=== PATIENT | female | born 1950 | race Caucasian/White ===

== ENCOUNTER 2021-09-15 13:49 | Outpatient (CLI) | payer MEDICARE, OTHER, SELFPAY ==
--- NOTE | 2021-09-15 14:00 | RAD_ITS ---
STUDY: X-RAY - PELVIS REASON FOR EXAM: Female, 70 years old. PSORIATIC ARTHROPATHY TECHNIQUE: One view of the pelvis was obtained. COMPARISON: None. FINDINGS: Moderate amount of fecal material is seen in the colon. There are multiple calcified phleboliths. Normal bilateral iliac wings, sacroiliac joints and visualized sacrum. Normal visualized bilateral superior and inferior pubic rami. Normal pubic symphysis. Normal ischial tuberosities. Normal visualized right femoral head. Normal right acetabulum. There is mild articular joint space narrowing of the right hip. Normal visualized left femoral head. Normal left acetabulum. There is mild articular joint space narrowing of the left hip. RAD/Pelvis 1 or 2 Views IMPRESSION: Degenerative changes of both hip joints. Electronically Signed: Conrad Mccann MD at 15:21 EST , Service support ,
[2021-09-15 17:48] LABS: Absolute Lymphocyte Count 2.16 X10^3/uL (0.83-4.51); Absolute Neutrophil Count 3.7 X10^3/uL (2.0-7.7); Basophil# 0.07 X10^3/uL; Basophil% 1.1 % (0-1); Eosinophils% 1.6 % (0-5); Hematocrit 37.5 % (37-47); Hemoglobin 12.3 g/dL (12.0-15.0); Lymphocyte # 2.16 X10^3/ul (0.83-4.51); Lymphocyte % 33.5 % (19-41); Mean Corp Hgb Conc 32.8 g/dL (32-36); Mean Corpuscular Hgb 31.6 pg (27.0-32.0); Mean Corpuscular Volume 96.4 fL (81-99); Mean Platelet Vol. 10.6 fl (6.2-12.0); Monocyte# 0.45 X10^3/uL; NRBC Flagged by Analyzer 0 % (0-5); Neutrophil # 3.65 X10^3/uL (2.7-7.7); Neutrophil % 56.6 % (47-70); Platelet Count 320 K/mm3 (150-450); RBC Distribution Width CV 13.5 % (11.6-14.6); RBC Distribution Width SD 48.2 fl (35.1-43.9); Red Blood Count 3.89 M/mm3 (4.2-5.4); White Blood Count 6.4 K/mm3 (4.4-11.0)
[2021-09-15 18:10] LABS: Erythrocyte Sedimentation Rate 4 mm/hr (0-30)
[2021-09-15 18:21] LABS: ALB/GLOB Ratio 1.2 RATIO (0.9-2.4); AST(SGOT) 20 U/L (15-37); Alanine Aminotransfer ALT/SGPT 31 U/L (13-56); Albumin, Serum 4.1 g/dL (3.2-5.0); Alkaline Phosphatase 59 U/L (45-117); Anion Gap 8 (5-15); BUN 18 mg/dL (7-18); BUN/Creat Ratio 22.8 RATIO (10-20); CRP < 2.90 mg/L (0.0-3.0); Calcium,Total 9.1 mg/dL (8.5-10.1); Chloride 96 mmol/L (98-107); Creatinine, Serum 0.79 mg/dL (0.55-1.02); EST Glomerular Filtration Rate 77 mL/min (>60); Est Glom Filt Rate - Afr Amer 93 mL/min (>60); Globulin 3.5 g/dL (2.2-4.2); Glucose 93 mg/dL (74-106); Potassium 3.8 mmol/L (3.5-5.1); Protein, Total 7.6 g/dL (6.4-8.2); Rheumatoid Factor < 10.0 IU/mL (<15); Sodium Level 133 mmol/L (136-145)
[2021-09-15 22:15] LABS: Hepatitis B Surface Antibody Non-Reactive; Hepatitis B Surface Antigen Non-Reactive (Nonreactive); Hepatitis C Antibody Non-Reactive (Nonreactive)
[2021-09-17 12:08] LABS: SJOGREN'S Anti-SS-A test < 0.2 AI (0.0-0.9); SJOGREN'S Anti-SS-B test < 0.2 AI (0.0-0.9)
[2021-09-17 13:42] LABS: ANTINUCLEAR ANTIBODIES DIRECT Negative (Negative)
[2021-09-18 08:48] LABS: CCP IgG Antibodies 4 units (0-19)
== END 2021-09-15 23:59 | disposition short-term general hospital (02) ==
LOC: MTLAB 13:58
PROVIDERS: PCP Student in an Organized Health Care Education/Training Program; Referring Provider Internal Medicine Rheumatology; Visit Provider Internal Medicine Rheumatology
DX: L40.59 Other psoriatic arthropathy (principal); L40.8 Other psoriasis; M47.897 Other spondylosis, lumbosacral region; M85.80 Other specified disorders of bone density and structure, unspecified site; E78.5 Hyperlipidemia, unspecified
CPT/HCPCS: 36415; 72170; 80053; 85025; 85652; 86038; 86140; 86200; 86235; 86431; 86706; 86803; 87340

== ENCOUNTER 2022-01-01 05:54 | Inpatient (IN) | payer MEDICARE, OTHER, SELFPAY ==
[2022-01-01] VITALS (13 sets, daily range): BP systolic 121–163; BP diastolic 56–86; PULSE 55–83; RESP 16–18; TEMP 35.8–36.6; O2SAT 95–100; BMI 20.1
[2022-01-01] MEDS: Lactated Ringers 1,000 ML 15 ML IV (06:47)
--- NOTE | 2022-01-01 06:53 | PCM.OPRPT ---
Problems Associated Problem List Diagnoses (1) Lumbar stenosis: Report of Operation Date of Procedure: 01/01/22 Pre-Operative Diagnosis: 1. Lumbar stenosis, L5-S1 with spondylosis 2. Lumbar degenerative disc disease L5-S1 Post-Operative Diagnosis: 1. Lumbar stenosis, L5-S1 with spondylosis 2. Lumbar degenerative disc disease L5-S1 Surgery/Procedure Performed:: 1. L5-S1 posterior lumbar interbody fusion 2. Insertion of intervertebral biomechanical device x1 3. Structural allograft for spinal fusion 4. L5 bilateral laminectomies, foraminotomies, facetectomies, decompression of bilateral L5 nerve roots 5. S1 bilateral laminectomies, foraminotomies, facetectomies, decompression of bilateral S1 nerve roots 6. L5-S1 posterior lateral fusion 7. Pedicle screw fixation 8. Local autograft for spinal fusion 9. Neuro monitoring bilateral upper and bilateral lower extremities Description of Surgical Findings:: The patient is a 71-year-old female with intractable back and leg pain. Image studies confirm the above diagnoses. She has failed conservative treatment to include medication, physical therapy and injections. The patient opted for operative intervention understanding the risk to include, but not limited to, infection, bleeding, damage to nerves arteries and veins, possibility of spinal fluid leak, nonunion, hardware failure, continued pain, need for further surgery, deep vein thrombosis, pulmonary embolism, heart attack, risk of stroke or . The patient was identified in the preoperative holding area. There she received preoperative IV antibiotics, clindamycin, and was then transferred to the operative suite. Once in the operative suite, after general endotracheal anesthesia was established, the patient was positioned prone on the Kwame operating table. All bony prominences were padded accordingly. The lumbar spine was prepped and draped in a standard surgical fashion. Bear hugger's were not turned on until the drapes were placed and sealed with Ioban. A midline incision was made and taken down to the level of the lumbodorsal fascia. The fascia was divided and subperiosteal dissection was taken down to the level of the transverse processes of L5 bilaterally and sacral ala bilaterally. Deep retractors were placed. A bone scalpel was used to make cuts in the lamina of L5 and then a series of Kerrisons and rongeurs were used removing the spinous process and lamina of L5. Then facetectomies of greater than 50% were performed as well as foraminotomies, decompressing the bilateral L5 and S1 nerve roots. Given the severity of the stenosis, I needed to perform wide bilateral laminectomies and near complete facetectomies in order to decompress the neural elements thus creating instability and necessitating the fusion. I then proceeded with pedicle screw fixation. Starting points were found at the junction of the superior articular process and transverse processes and sacral ala. A power bur was used for the starting points. Pedicle probes were placed bilaterally and then 6.5 x 45 mm screws were placed bilaterally at L5 and 6.5 x 40 mm screws were placed bilaterally at S1. The screws were tested with intraoperative neurophysiologic monitoring and they tested within normal limits. Connecting rods were then applied and secured with set screws. I then proceeded with the posterior lateral fusion. This was accomplished by decorticating the transverse processes bilaterally at L5 and the sacral ala bilaterally at S1. This decorticated bone was then bridged with local autograft from the decompression as well as morselized cancellous allograft therefore completing the posterior lateral fusion at L5-S1. The incision was thoroughly irrigated. Tisseel was placed over the dura as a hemostatic agent. A deep drain was placed. The fascia was closed with #1 Vicryl, subcutaneous with 2-0 Vicryl and skin with 2-0 nylon. A sterile dressing was applied with 4 x 4's ABD and tape. Sponge instrument needle counts were correct at the end of the case. Neurophysiologic monitoring was maintained at baseline throughout the duration of the case. The patient was extubated and taken to the PACU without incident. Sintia Healy PA-C was present during the entire duration of the case and necessary for critical parts of the case including retraction and closure. Surgeon: Luis Pinto seconds inspector: Sintia Healy Type of Anesthesia: General Drains: Hemovac Estimated Blood Loss (mL): 100 cc Fluids Replaced: 2000 cc Grafts/Implants Used: Unified spine, Talos, Vitae OS, DBM Complications None Admit VTE Documentation VTE Present on Admission: No
--- NOTE | 2022-01-01 06:53 | PCM.PN.ORT ---
Subjective Subjective The patient was seen postoperatively in the PACU. She is lying in bed resting comfortably. She is having some postop soreness in the back but denies any other complaints including numbness tingling or weakness. Objective Data Objective Data Vital Signs: Vital Signs Temp Pulse Resp BP Pulse Ox 97.2 F L 77 18 163/86 H 100 01/01/22 06:36 01/01/22 06:36 01/01/22 06:36 01/01/22 06:36 01/01/22 06:36 Oxygen Delivery Method Room Air Weight: 117 lb 6.4 oz Body Mass Index (BMI) 20.1 Lab / Micro Data Micro: Microbiology 12/29/21 09:18 Interface Orders SARS-CoV-2 Antigen (Rapid) - Final Physical Exam Const alert, oriented x3 and no apparent distress General Appearance: cooperative and comfortable HEENT normocephalic and head/scalp atraumatic Eyes EOMs intact bilaterally and conjunctivae normal Neck full ROM General: normal visual inspection Chest inspection of chest normal and palpation of chest normal Resp normal respiratory effort and normal air movement Cardio regular rate, regular rhythm and peripheral pulses 2+ throughout GI soft to palpation, non-tender and non-distended Back/Spine Back/Spine Narrative: Dressing clean dry and intact. Drain in place and functioning, small amount of serosanguineous fluid in the drain Cervical Spine: cervical ROM normal Thoracic Spine / Upper Back: normal to inspection Lumbar Spine / Lower Back: normal to inspection Extremity normal to inspection, full ROM, normal capillary refill, no clubbing, cyanosis or edema and no calf tenderness Skin no rashes or lesions noted General Skin Exam: no breakdown Neuro oriented x3, CN's II-XII intact bilaterally, moves all extremities, no focal motor deficits, no sensory deficits noted and deep tendon reflexes 2+ bilaterally Motor Exam: strength 5/5 throughout and muscle tone normal throughout Assessment & Plan Assessment/Plan (1) Lumbar stenosis: PLAN: Okay to admit to floor See orders Pain control and mobilization as tolerated, back brace on at all times while out of bed Continue antibiotics while drain in place Discharge planning, likely home tomorrow
--- NOTE | 2022-01-01 06:53 | PCM.DC.SUM ---
Providers Date of Admission: 01/01/22 Primary Care Physician: Dr. Aden Harrington DO Reason For Visit: lumbar 5-sacral 1 posterior lumbar interbody fusio Diagnosis Discharge Diagnosis (1) Lumbar stenosis: Status: Acute Code(s): M48.061 - Spinal stenosis, lumbar region without neurogenic claudication Medications at Discharge Home Medications ascorbic acid (vitamin C) [Vitamin C] 500 mg PO DAILY 12/22/21 calcium carbonate-vitamin D3 2 tab PO DAILY 12/22/21 folic acid 2 mg PO DAILY 12/22/21 methotrexate sodium 15 mg PO QWEEK 12/22/21 omega-3 fatty acids 1,000 mg PO DAILY 12/22/21 sknvhcj-eijc-fslws-oreg-capryl 1 cap PO DAILY 12/22/21 vitamin B complex 1 cap PO DAILY 12/22/21 hydrocodone-acetaminophen 1 tab PO Q6H 7 Days #28 tab 01/01/22 Hospital Course Operations - (L5-S1 posterior lumbar interbody fusion, decompression, posterior spinal fusion with instrumentation, use of allograft) Summary of Care Provided Minutes Spent on Discharge: 15 Hospital Course: The patient is a 71-year-old female who underwent L5-S1 posterior lumbar interbody fusion, decompression, posterior spinal fusion with instrumentation, use of allograft on 01/01/2022. She was subsequently admitted. The hospitalist was consulted for medical management. She progressed well. Her pain was well controlled and she was mobilizing well. Her drain was pulled on postoperative day 1. No significant medical issues were reported. She was subsequently discharged home on 01/02/22 to follow-up with Dr. Pinto in 3 weeks Physical Exam Const alert, oriented x3 and no apparent distress General Appearance: cooperative, comfortable and well kempt HEENT normocephalic and head/scalp atraumatic Eyes EOMs intact bilaterally and conjunctivae normal Neck full ROM General: normal visual inspection Chest inspection of chest normal and palpation of chest normal Resp normal respiratory effort and normal air movement Effort and Inspection: able to speak in complete sentences Cardio regular rate and peripheral pulses 2+ throughout GI soft to palpation, non-tender and non-distended Back/Spine Back/Spine Narrative: Dressing clean dry and intact. Incision well approximated with interrupted sutures in place. No tenderness erythema drainage or fluctuance Cervical Spine: cervical ROM normal Thoracic Spine / Upper Back: normal to inspection Lumbar Spine / Lower Back: normal to inspection Extremity normal to inspection, full ROM, normal capillary refill, no clubbing, cyanosis or edema and no calf tenderness Skin no rashes or lesions noted General Skin Exam: no breakdown Neuro oriented x3, CN's II-XII intact bilaterally, moves all extremities, no focal motor deficits, no sensory deficits noted and deep tendon reflexes 2+ bilaterally Motor Exam: strength 5/5 throughout and muscle tone normal throughout Weight / BMI Weight Weight: 117 lb 6.4 oz Body Mass Index (BMI) 20.1 ABG / Lab / Microbiology Data Microbiology: Microbiology 12/29/21 09:18 Interface Orders SARS-CoV-2 Antigen (Rapid) - Final D/C Instructions Discharge Diet: No restrictions Lifting Restricted to (Lbs): 5 Additional Activity Instructions: No bending twisting or lifting greater than 5 pounds, back brace on at all times when out of bed Call your doctor if your incision/area has: Continuous Slow Oozing, Sudden Increased Bleeding, Increased Pain/ Swelling, Increased Redness, Foul Smelling Discharge and Swelling at the incision site Call your doctor if you observe: Fever of 101 or Higher, Coldness, Increased Pain, Numbness or Tingling, Change in Color, Inability to urinate, Inability to have a bowel movement, Using more than 1 pad per hour, Shortness of breath, Dizziness, Fainting spells, Swelling in the ankles, Chest pain, Prolonged hiccupping, Increased palpitations (irregular heartbeat), Calf discomfort and Uncontrolled pain Change Dressing in: Daily Cleanse incision/area with: Do not get Incision Wet and Keep Dressing Clean & Dry Additional Dressing/Incision Instructions: Daily dry dressing changes with gauze and tape and iodine to incision. [place] dressing to shower Please Follow Up With: Luis Pinto DO When: 3 weeks Meaningful Use Info Meaningful Use Diagnoses (Choose all that apply): None applicable Discharge Plan Admission Admit Date/Time: 01/01/22 05:54 Attending Provider: Luis Pinto Primary Care Provider: Aden Harrington Consulting Providers: Arlene Moyer Instructions Additional Instructions / Restrictions: 1. During your procedure, you received sedation through your IV. Please follow these instructions for the next 24 hours: Do not drive a motor vehicle, do not drink any alcoholic beverages, and do not sign any legal documents or make personal or business decisions. A responsible adult should stay with you at least 6 hours after the procedure. 2. Keep your surgical site/incision clean and the dressing dry and intact. You may use an ice pack at the surgical site to reduce any swelling or discomfort. 3. Monitor the incision site for any signs or symptoms of infection. Watch for redness, excessive swelling or drainage, or continued pain at the incision site after 3 days. Contact your physician immediately for a fever, chills or a temperature of 101.5? F or greater. 4. Take your medication exactly as prescribed by your physician. Do not attempt to wean yourself off any of your medications even though your pain is improving. This process needs to be carefully monitored by your doctor. Take any antibiotics prescribed exactly as directed and until they are gone. 5. Avoid stretching, bending, pulling, twisting or any sudden movements. Do not bend or twist at the waist. Back brace at all times when out of bed 6. No lifting greater than 5 pounds. 7. Do not operate a motor vehicle, equipment or a power tool while taking pain medication 8. Do not have any manipulation done by a chiropractor or any other physician without first consulting with the surgeon 9 Please contact our office if you are even scheduled for a CT scan or an MRI. 10. Please call us if you have any questions, problems or concerns. Discharge Orders/Prescriptions Prescriptions: New hydrocodone-acetaminophen 5-325 mg tablet 1 tab PO Q6H 7 Days Qty: 28 RF: 0 Continued methotrexate sodium 2.5 mg Tablet 15 mg PO QWEEK RF: 0 folic acid 1 mg Tablet 2 mg PO DAILY RF: 0 ascorbic acid (vitamin C) [Vitamin C] 500 mg Tablet Extended Release 500 mg PO DAILY RF: 0 vitamin B complex Capsule 1 cap PO DAILY RF: 0 omega-3 fatty acids Capsule 1,000 mg PO DAILY RF: 0 dtunzdl-ccjb-zlogy-oreg-capryl 100 mg-150 mg- 50 mg-150 mg Capsule 1 cap PO DAILY RF: 0 calcium carbonate-vitamin D3 600 mg-5 mcg (200 unit) Tablet 2 tab PO DAILY RF: 0 Referrals / Follow Up: Aden Harrington DO [Primary Care Provider] - Luis Pinto DO [STAFF PHYSICIAN] - Disposition Discharge Orders: Discharge Patient (Routine); Ordered 01/02/22 Ordered By: Dr. Luis Pinto
--- NOTE | 2022-01-01 07:30 | RAD_ITS ---
STUDY: X-RAY - LUMBAR SPINE REASON FOR EXAM: Female, 71 years old. L5-S1 POSTERIOR FUSION WITH INSTRUMENTS. 140 SEC. FL. TECHNIQUE: 3 view(s) of the lumbar spine were obtained. COMPARISON: None FINDINGS: Localization instrument is seen at L5-S1 level. Interpedicular screw and naman fixation at the L5-S1 level. RAD/Lumbar Spine 2 or 3 Views IMPRESSION: Intraoperative images are provided for screw and naman fixation at the L5-S1 level. Electronically Signed: Conrad Mccann MD at 13:56 EDT ,
[2022-01-01 07:39] LABS: Prothrombin Time (Protime)PT. 12.9 SECONDS (11.7-14.9)
[2022-01-01] MEDS: Clindamycin 600 MG/50 ML BAG 100 MG IV (08:05)
[2022-01-01] MEDS: Heparin 10,000 UNITS/10 ML Vial 10000 UNITS (08:28)
[2022-01-01] MEDS: THROMBIN (RECOMBINANT) 20,000 UNIT VIAL 20000 UNIT TOPICAL (08:45)
--- NOTE | 2022-01-01 14:19 | PCM.PN.HOSP ---
Documented by User: Kofi NEGRETE 01/01/22 14:27 Subjective Subjective Patient is a 71-year-old female comfortably lying in bed, alert and orient x3. Patient reports that her pain is well controlled after her back surgery, but does report some nausea. Does not appear in acute distress. Objective Data Objective Data Vital Signs: Vital Signs Temp Pulse Resp BP Pulse Ox 97.2 F L 83 16 159/79 H 98 01/01/22 13:47 01/01/22 13:47 01/01/22 13:47 01/01/22 13:47 01/01/22 13:47 Oxygen Flow Rate (L/min) 4 Oxygen Delivery Method Room Air Weight: 117 lb 6.4 oz Body Mass Index (BMI) 20.1 Intake & Output: Intake and Output for Last 24 Hours 12/30/21 12/31/21 01/01/22 23:59 23:59 23:59 Intake Total 50 / 50 Output Total 450 / 450 Balance -400 / -400 Lab / Micro Data Labs: Laboratory Results - last 24 hr 01/01/22 06:40: PT Cancelled, INR Cancelled, APTT Cancelled 01/01/22 07:13: PT 12.9, INR 1.0, APTT 31.0 Micro: Microbiology 12/29/21 09:18 Interface Orders SARS-CoV-2 Antigen (Rapid) - Final Radiography Diagnostic Testing: Radiology Impression Lumbar Spine X-Ray 01/01/22 07:30 IMPRESSION: Intraoperative images are provided for screw and naman fixation at the L5-S1 level. Electronically Signed: Conrad Mccann MD at 13:56 EDT , Physical Exam Const alert, oriented x3 and no apparent distress HEENT head/scalp atraumatic and moist oral mucous membranes Head and Scalp: normocephalic Eyes PERRL, EOMs intact bilaterally and conjunctivae normal Neck no lymphadenopathy, supple and no JVD Resp normal respiratory effort, no retractions and no use of accessory muscles Cardio regular rate, regular rhythm and no JVD GI normal to inspection, nondistended, normoactive bowel sounds Extremity normal to inspection and no clubbing, cyanosis or edema Skin no rashes or lesions noted Neuro CN's II-XII intact bilaterally Psych affect normal Assessment & Plan Assessment/Plan (1) Lumbar stenosis: PLAN: Patient is a 71-year-old female who presents to the hospital medicine service on consult from orthopedics who is caring for this patient after a L5-S1 posterior lumbar fusion. 1) psoriatic arthritis Continue methotrexate and folic acid. 2) COPD Patient denies any history of COPD, but it is present on her medical history. Patient not on any bronchodilators at home and is not on home oxygen. We will continue to monitor, as needed albuterol ordered. 3) L5-S1 lumbar stenosis POD 0 s/p L5-S1 posterior lumbar fusion. Management per orthopedics. As needed medications ordered. Patient seen by Kofi Ohara PA-C, under the supervision of Dr. Moyer. Time spent on patient care: 9 minutes.
[2022-01-01] MEDS: Lactated Ringers 1,000 ML 100 ML IV ×2 (14:37→20:51)
[2022-01-01] MEDS: Acetaminophen 500 MG Tablet 1000 MG PO ×2 (14:38→21:58)
[2022-01-01] MEDS: Clindamycin 900 MG/50 ML BAG 75 MG IV ×2 (15:13→23:37)
--- NOTE | 2022-01-01 15:54 | CASEMGMT ---
Social Work Note EDDIE received call from Maximo at [facility] stating they received a [facility] referral for RN from pt's PCP Aden Harrington for pt after pt's surgery. Maximo states that the order was just for RN for [facility]. Maximo states they will just need to know when pt discharges and to fax discharge paperwork to them at discharge. . . EDDIE updated RN CM. Bibiana Boyle MANAGED SERVICES CONSULTANT, EMS MANAGER
[2022-01-01] MEDS: oxyCODONE 5 MG Tablet PO (20:40)
[2022-01-01] MEDS: Ondansetron 4 MG/2 ML Vial IV (20:41)
[2022-01-02] VITALS (8 sets, daily range): BP systolic 131–159; BP diastolic 64–85; PULSE 54–85; RESP 14–16; TEMP 36.4–36.8; O2SAT 98–100
[2022-01-02] MEDS: oxyCODONE 5 MG Tablet PO (02:42)
[2022-01-02] MEDS: Acetaminophen 500 MG Tablet 1000 MG PO (05:36)
--- NOTE | 2022-01-02 06:40 | PCM.PN.ORT ---
Subjective Subjective The patient was seen and examined postoperative day 1. She is lying in bed resting comfortably. She is having some mild postop soreness and stiffness in the lower back. No other complaints. She did have an episode of nausea which has resolved. She denies any numbness tingling weakness. They did have her out of bed yesterday without complications. Objective Data Objective Data Vital Signs: Vital Signs Temp Pulse Resp BP Pulse Ox 98.3 F 54 L 16 159/85 H 100 01/02/22 03:00 01/02/22 04:50 01/02/22 03:00 01/02/22 03:00 01/02/22 03:00 Oxygen Flow Rate (L/min) 4 Oxygen Delivery Method Room Air Weight: 117 lb 6.4 oz Body Mass Index (BMI) 20.1 Intake & Output: Intake and Output for Last 24 Hours 12/31/21 01/01/22 01/02/22 23:59 23:59 23:59 Intake Total 1566.25 / 1566.25 581.67 / 581.67 Output Total 1070 / 1635 1005 / 1005 Balance 496.25 / -68.75 -423.33 / -423.33 Lab / Micro Data Labs: Laboratory Results - last 24 hr 01/01/22 06:40: PT Cancelled, INR Cancelled, APTT Cancelled 01/01/22 07:13: PT 12.9, INR 1.0, APTT 31.0 Micro: Microbiology 12/29/21 09:18 Interface Orders SARS-CoV-2 Antigen (Rapid) - Final Radiography Diagnostic Testing: Radiology Impression Lumbar Spine X-Ray 01/01/22 07:30 IMPRESSION: Intraoperative images are provided for screw and naman fixation at the L5-S1 level. Electronically Signed: Conrad Mccann MD at 13:56 EDT , Physical Exam Const alert, oriented x3 and no apparent distress General Appearance: cooperative, comfortable and well kempt HEENT normocephalic and head/scalp atraumatic Eyes EOMs intact bilaterally and conjunctivae normal Neck full ROM General: normal visual inspection Chest inspection of chest normal and palpation of chest normal Resp normal respiratory effort and normal air movement Effort and Inspection: able to speak in complete sentences Cardio regular rate and peripheral pulses 2+ throughout GI soft to palpation, non-tender and non-distended Back/Spine Back/Spine Narrative: Dressing clean dry and intact. Drain in place and functioning, small amount of serosanguineous drainage present. Incision well approximated. No tenderness erythema drainage or fluctuance Cervical Spine: cervical ROM normal Thoracic Spine / Upper Back: normal to inspection Lumbar Spine / Lower Back: normal to inspection Extremity normal to inspection, full ROM, normal capillary refill, no clubbing, cyanosis or edema and no calf tenderness Skin no rashes or lesions noted General Skin Exam: no breakdown Neuro oriented x3, CN's II-XII intact bilaterally, moves all extremities, no focal motor deficits, no sensory deficits noted and deep tendon reflexes 2+ bilaterally Motor Exam: strength 5/5 throughout and muscle tone normal throughout Assessment & Plan Assessment/Plan (1) Lumbar stenosis: PLAN: I had a lengthy discussion with the patient. I pulled her drain. Her pain appears to be well controlled. Physical therapy to see her today. Okay to discharge home today if she wishes.
[2022-01-02] MEDS: HYDROcodone Bitartrate/Apap 5/325 Tablet PO ×2 (09:23→15:34)
[2022-01-02] MEDS: Calcium Carb/Vitamin D 1 TABLET Tablet 2 TABLET PO (09:24)
[2022-01-02] MEDS: Ascorbic Acid 500 MG Tablet PO (09:24)
[2022-01-02] MEDS: Folic Acid 1 MG Tablet 2 MG PO (09:24)
--- NOTE | 2022-01-02 09:50 | CASEMGMT ---
RN CM MERCHANDISER SEASONAL CM to room to meet with patient for initial transition planning/care coordination assessment. RN NORM introduced self and role at [facility]. Pt voices understanding and consents to assessment at this time. Pt resting in bed in no distress at this time. Pt is A/O at this time and answers all questions appropriately. Care providers, pharmacy, and demographics verified/updated at this time. PCP: Dr Aden Harrington Specialists: Dr Pinto-bonny Preferred Pharmacy: [facility] Retail Insurance: [facility], [place] Prescription Benefit: Yes, [employer] Living Will/HPOA: Has both LW and HPOA, who is her sisterShani LNOK: Sister, Shani Living Arrangements: Lives alone in 2-story home. Has 3 steps to enter through front or rear entrance. Flight of steps from basement entrance to main level. Pt was independent prior to hospitalization/surgery. Step-dtr and grand-dtr plan to stay w/pt for 7-10 days to assist. Pt states they both have medical backgrounds. Transportation: Pt states drives self and states no transportation concerns at this time. Sister or brother will take her home @ d/c DME: States has the following DME: back brace, shower chair. Has a walker available to use that was her late husbands. Pt states no need for further DME at this time. HHC/SNF: No hx of either. Referral to [facility] for SN has already been made by pt's PCP, Dr Harrington, for wound care and they are to be notified when pt is discharged. Pt states this remains her plan @ discharge. See EDDIE Verdugo, note w/phone and fax #'s for [facility]. Pt wishes to return home and states has no concerns with going home at time of discharge, once medically ready. CM to follow for any further discharge planning/needs. Pt voices no further concerns/needs at this time. Advised pt to ask for CM if any further questions/concerns/needs arise. Voices understanding. PLAN: Gely LANE RN, CM
[2022-01-02] MEDS: Ondansetron 4 MG/2 ML Vial IV (10:54)
[2022-01-02] MEDS: 0.9% Saline Lock 10 ML Syringe IV (10:55)
--- NOTE | 2022-01-02 15:40 | CASEMGMT ---
LINDSAY ZHENG attempted to call [facility] to make aware of dc. Phone rang and rang then a message came on that the person at this number is not answering. Unable to leave a message. Faxed dc summary at this time to [phone].
--- NOTE | 2022-01-03 14:08 | CASEMGMT ---
Received tc from [facility] with returned phone number to verify if pt needs therapy. TC to number provided, sent to directory and unable to leave a message.
== END 2022-01-02 16:25 | disposition home health service (06) | DRG 460 ==
LOC: ACINP 07:42 → MS3 13:16
PROVIDERS: Admitting Provider Orthopaedic Surgery; PCP Student in an Organized Health Care Education/Training Program; Referring Provider Orthopaedic Surgery; Visit Provider Orthopaedic Surgery
PROC: 0SG00AJ Fusion of Lumbar Vertebral Joint with Interbody Fusion Device, Posterior Approach, Anterior Column, Open Approach (ICD-10-PCS; CPT 22630; principal; 2022-01-01 07:00)
DX: M48.061 Spinal stenosis, lumbar region without neurogenic claudication (principal); L40.50 Arthropathic psoriasis, unspecified; J44.9 Chronic obstructive pulmonary disease, unspecified; M06.9 Rheumatoid arthritis, unspecified; M46.96 Unspecified inflammatory spondylopathy, lumbar region; M46.1 Sacroiliitis, not elsewhere classified; M47.26 Other spondylosis with radiculopathy, lumbar region; M51.36 Other intervertebral disc degeneration, lumbar region; E78.00 Pure hypercholesterolemia, unspecified; M81.0 Age-related osteoporosis without current pathological fracture; M85.88 Other specified disorders of bone density and structure, other site; G89.29 Other chronic pain; Z98.1 Arthrodesis status; Z28.310 Unvaccinated for COVID-19; Z28.9 Immunization not carried out for unspecified reason; Z79.899 Other long term (current) drug therapy; Z86.16 Personal history of COVID-19
CPT/HCPCS: 72100; 76000; 85610; 85730; 87426; 97162; 99251; C1713; C9803; J7120; A4216; G0463; J2405

== ENCOUNTER → 2022-12-02 | Outpatient (CLI) | payer MEDICARE, OTHER, SELFPAY ==
--- NOTE | 2022-12-02 07:06 | MRI_ITS ---
STUDY: MR Brain WO/W Contrast 12/02/2022 8:33 PM REASON FOR EXAM: Female, 71 years old. STAGING MELANOMA COMPARISON: 12.01.22 pet TECHNIQUE: Standardized multiplanar fat and water weighted pulse sequences were obtained. MR Brain WO/W Contrast FINDINGS: There is mild cerebral atrophy with widening of the extra-axial spaces and ventricular dilatation. Normal white matter tracts of the supratentorial brain. Normal cerebellum. No enhancing lesions. Normal bilateral basal ganglia. Normal thalami. There is no extra-axial fluid accumulation. Normal flow voids within the major intracranial circulation suggesting patency by spin echo criteria. Normal sella turcica, pituitary gland, infundibular stalk, optic chiasm and hypothalamus. Normal tectal plate and pineal gland. Normal midbrain, jazmin and medulla. Normal basal cisterns. Normal bilateral temporal bones. Normal bilateral internal auditory canals. No demonstrated orbital abnormality, within the constraints of a routine brain study. Normal visualized paranasal sinuses. Normal calvarium and skull base. Normal visualized soft tissue structures. Normal visualized upper cervical spine. Aspect score 10 MRI/Brain W/WO Contrast IMPRESSION: (NOT LISTED IN ORDER OF SIGNIFICANCE) There are no acute intracranial findings. Electronically Signed: Kwame Gore MD at 20:35 EDT ,
== END | disposition home or self-care (01) ==
LOC: MRI 07:06
PROVIDERS: PCP Student in an Organized Health Care Education/Training Program; Referring Provider Internal Medicine Hematology & Oncology; Visit Provider Internal Medicine Hematology & Oncology
DX: C43.9 Malignant melanoma of skin, unspecified (principal)
CPT/HCPCS: 70553; A9575

== ENCOUNTER → 2023-05-06 | Outpatient (CLI) | payer MEDICARE, OTHER, SELFPAY ==
[2023-05-06 15:21] LABS: Absolute Lymphocyte Count 2.09 X10^3/uL (0.83-4.51); Absolute Neutrophil Count 4.2 X10^3/uL (2.0-7.7); Basophil# 0.05 X10^3/uL; Basophil% 0.7 % (0-1); Eosinophils% 1.5 % (0-5); Hematocrit 39.6 % (37-47); Hemoglobin 12.8 g/dL (12.0-15.0); Lymphocyte # 2.09 X10^3/ul (0.83-4.51); Lymphocyte % 30.5 % (19-41); Mean Corp Hgb Conc 32.3 g/dL (32-36); Mean Corpuscular Hgb 33.3 pg (27.0-32.0); Mean Corpuscular Volume 103.1 fL (81-99); Mean Platelet Vol. 10.3 fl (6.2-12.0); Monocyte% 5.8 % (0-10); NRBC Flagged by Analyzer 0 % (0-5); Neutrophil # 4.21 X10^3/uL (2.7-7.7); Neutrophil % 61.4 % (47-70); Platelet Count 327 K/mm3 (150-450); RBC Distribution Width CV 13.7 % (11.6-14.6); RBC Distribution Width SD 51.7 fl (35.1-43.9); Red Blood Count 3.84 M/mm3 (4.2-5.4); White Blood Count 6.9 K/mm3 (4.4-11.0)
[2023-05-06 16:12] LABS: ALB/GLOB Ratio 1.2 RATIO (0.9-2.4); AST(SGOT) 23 U/L (15-37); Alanine Aminotransfer ALT/SGPT 34 U/L (13-56); Albumin, Serum 3.6 g/dL (3.2-5.0); Alkaline Phosphatase 47 U/L (45-117); Anion Gap 3 (5-15); BUN 16 mg/dL (7-18); BUN/Creat Ratio 18.4 RATIO (10-20); Calcium,Total 9.2 mg/dL (8.5-10.1); Chloride 99 mmol/L (98-107); Creatinine, Serum 0.87 mg/dL (0.55-1.02); EST Glomerular Filtration Rate 68 mL/min (>60); Est Glom Filt Rate - Afr Amer 83 mL/min (>60); Glucose 95 mg/dL (74-106); Potassium 4.8 mmol/L (3.5-5.1); Protein, Total 6.6 g/dL (6.4-8.2); Sodium Level 132 mmol/L (136-145)
== END | disposition home or self-care (01) ==
LOC: MTLAB 12:44
PROVIDERS: PCP Student in an Organized Health Care Education/Training Program; Visit Provider Internal Medicine Rheumatology
DX: L40.59 Other psoriatic arthropathy (principal); L40.8 Other psoriasis; M47.897 Other spondylosis, lumbosacral region; M85.80 Other specified disorders of bone density and structure, unspecified site; Z79.899 Other long term (current) drug therapy; Z98.1 Arthrodesis status
CPT/HCPCS: 36415; 80053; 85025

== ENCOUNTER 2024-12-27 09:05 | Outpatient (CLI) | payer MEDICARE, OTHER, SELFPAY ==
[2024-12-27] VITALS (12 sets, daily range): BP systolic 113–150; BP diastolic 64–93; PULSE 74–88; RESP 15–25; TEMP 36.5; O2SAT 92–100; BMI 19.9
[2024-12-27 09:22] LABS: Absolute Lymphocyte Count 1.54 X10^3/uL (0.83-4.51); Absolute Neutrophil Count 7.6 X10^3/uL (2.0-7.7); Basophil# 0.07 X10^3/uL; Basophil% 0.7 % (0-1); Eosinophil# 0.08 X10^3/uL; Eosinophils% 0.8 % (0-5); Hematocrit 39.2 % (37-47); Hemoglobin 13.1 g/dL (12.0-15.0); Lymphocyte # 1.54 X10^3/ul (0.83-4.51); Lymphocyte % 15.3 % (19-41); Mean Corp Hgb Conc 33.4 g/dL (32-36); Mean Corpuscular Hgb 33.1 pg (27.0-32.0); Monocyte# 0.77 X10^3/uL; Monocyte% 7.6 % (0-10); NRBC Flagged by Analyzer 0 % (0-5); Neutrophil % 75.3 % (47-70); Platelet Count 335 K/mm3 (150-450); RBC Distribution Width CV 14.5 % (11.6-14.6); Red Blood Count 3.96 M/mm3 (4.2-5.4); White Blood Count 10.1 K/mm3 (4.4-11.0)
[2024-12-27 09:31] LABS: International Normalized Ratio 0.9; Prothrombin Time (Protime)PT. 12.7 SECONDS (11.7-14.9)
[2024-12-27 09:32] LABS: Partial Thromboplast Time 28.9 Seconds (24.1-36.2)
--- NOTE | 2024-12-27 10:00 | CT_ITS ---
PROCEDURE: BIOPSY/INJ OR NEEDLE PLACEMENT 12/27/2024 REASON FOR EXAM: RESTAGING MELANOMA TECHNIQUE: CT-guided biopsy of the right lobe of the liver. The procedure as well as the benefits and possible complications including bleeding and infection were explained to the patient. Informed consent was obtained. The patient was in the supine position. Conscious sedation was performed. The patient received 1 mg Versed and 25 mcg of fentanyl intravenously. Conscious sedation was started at 10:06 a.m. and terminated at 10:26 a.m.. The patient was independently monitored by the department nurse. The overlying skin was prepped and draped in usual sterile fashion. Utilizing 18 gauge core biopsy needle, 5 core biopsies of the mass in the right lobe of the liver was performed. Adequate specimen was obtained. The patient tolerated the procedure well. One or more dose reduction techniques were used (e.g., Automated exposure control, adjustment of the mA and/or kV according to patient size, use of iterative reconstruction technique). RADIATION DOSE SUMMARY: CTDlvol: 14 mGy DLP: 245.83 mGycm COMPARISON: Prior MRI examination. FINDINGS: Successful CT-guided core biopsy of the mass in the right lobe of the liver. CT/Biopsy/Inj or Needle Placement IMPRESSION: Successful CT-guided core biopsy of the mass in the right lobe of the liver. The patient tolerated the procedure well. Conscious sedation protocol was followed. Reading Location: [place] [id number]
[2024-12-27] MEDS: Midazolam 2 MG/2 ML Syringe IV (10:16)
[2024-12-27] MEDS: fentaNYL 100 MCG/2 ML Ampul IV ×2 (10:18→10:55)
[2024-12-27] MEDS: 0.9% Saline Lock 10 ML Syringe IV (10:19)
[2024-12-27] MEDS: Lidocaine 2% (20 ml mdv) 20 ML Vial INFILT (10:32)
--- NOTE | 2024-12-27 10:40 | ASPIGT_PTH ---
PATIENT: KIM DESHPANDE LOC: CT U#:[id number] AGE/SX: 74/F ROOM: RE12/27/[address]: Dr. Katya Flanagan MD : 1950 BED: DIS: 12/27/2024 SPEC #: [id number] RECD: 12/27/24 10:58 STATUS: SUSHANT REQ #: [id number] WILLIE: 12/27/24 10:[address]: Katya Flanagan DEPT: SURGICAL PATHOLOGY RECD BY: Joel Solorio ENTERED: 12/27/24 10:59 SP TYPE: ASP RAD OTHR DR: Dr. Aden Harrington DO Tissues: A - Liver, NOS Procedures: FNA Specimen Adequacy Immunohistochemical Stains Special Stain Group II Surgery Specimen Level IV Surgery Specimen Level V Imprint (control) IHC Stain ADDITIONAL HEADER OPERATION: CT guided liver biopsy PRE-OP DIAGNOSIS: Mass, melanoma restaging TISSUE SUBMITTED: A- Liver biopsy MICROSCOPIC DIAGNOSIS A. Liver, mass, core biopsy: * Malignant neoplasm. * Further evaluation pending IHC stains. * An addendum report will follow. COMMENT The specimen is evaluated at the time of biopsy by Dr. Herrera. Immediate Evaluation = Suspicious. MICROSCOPIC DESCRIPTION Slides are reviewed. GROSS DESCRIPTION A. Received in formalin in a container labeled with the patient's name, date of , and liver biopsy are multiple bay-pink fragments of soft tissue measuring 1.2 x 0.7 x 0.2 cm in aggregate. Submitted in toto in A1. [facility] 12-27-2024 CPT:26519,29996,81321p1 ADDENDUM ADDENDUM ADDENDUM ADDENDUM ADDENDUM ADDENDUM ADDENDUM ADDENDUM ADDENDUM ADDENDUM ADDENDUM 01/08/2025 13:52 ADDENDUM 01/18/2025 09:59 ADDENDUM 01/08/2025 13:52 ADDENDUM 01/08/2025 13:52 ADDENDUM 01/08/2025 13:52 ADDENDUM 01/08/2025 13:52 The pre-op diagnosis of melanoma restaging is noted. The malignant cells are positive for Melan A and S-100; and negative for pancytokeratin. The findings are compatible with metastatic malignant melanoma. All matched controls reacted appropriately. These tests were developed and their performance characteristics determined by [facility]. They may not have been cleared or approved by the [place]. Food and Drug Administration. The FDA has determined that such clearance or approval is not necessary.? The above immunohistochemical/dualISH?markers are ordered and reviewed by the Pathologist. This addendum is added to incorporate an outside pathology consultation report. The case was examined at [facility] by Dr. Mel Olson (#[id number]) and the following diagnosis was rendered. A. 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 No BRAF mutation detected. Given to the presence of a KRAS mutation, the sensitivity of this MAP2K1 mutation to MAPK- directed kinase inhibitors is difficult to predict. Please see complete above mentioned consultation report in EMR
== END 2024-12-27 23:59 | disposition home or self-care (01) ==
LOC: CT 09:07
PROVIDERS: Radiology Diagnostic Radiology; PCP Student in an Organized Health Care Education/Training Program; Referring Provider Internal Medicine Hematology & Oncology; Visit Provider Internal Medicine Hematology & Oncology
DX: Z01.818 Encounter for other preprocedural examination (principal); C78.01 Secondary malignant neoplasm of right lung; C78.02 Secondary malignant neoplasm of left lung; C78.7 Secondary malignant neoplasm of liver and intrahepatic bile duct; C43.9 Malignant melanoma of skin, unspecified
CPT/HCPCS: 47000; 36415; 77012; 85025; 85610; 85730; 88172; 88305; 88307; 88313; 88341; 88342; 99156; A4216

== ENCOUNTER → 2025-01-09 | Outpatient (CLI) | payer MEDICARE, OTHER, SELFPAY ==
--- NOTE | 2025-01-09 15:56 | MRI_ITS ---
PROCEDURE: BRAIN W/WO CONTRAST 01/09/2025 REASON FOR EXAM: RESTAGING MELANOMA TECHNIQUE: Brain MRI without and with intravenous contrast with additional dedicated imaging of the IACs. Multiplanar and multisequence images were obtained. CONTRAST: 10 cc IV Clariscan was administered COMPARISON: No images provided; report from MRI brain 12/02/2022 noted. FINDINGS: BRAIN/PARENCHYMA: No evidence of acute infarction or acute intracranial hemorrhage. There are subcortical and periventricular white matter FLAIR hyperintensities, likely related to chronic microvascular ischemic disease. No abnormal post-contrast enhancement. EXTRA-AXIAL SPACES: No abnormal extra-axial fluid collections. Patent basal cisterns and foramen magnum. MIDLINE SHIFT: None. VENTRICLES: Mild generalized volume loss with concordant ventricular enlargement. SCALP SOFT TISSUES & CALVARIUM: No significant abnormality. VISUALIZED SINUSES & MASTOIDS: No air-fluid levels in the paranasal sinuses. Mild-moderate paranasal sinus mucosal thickening. The mastoid air cells are clear. ARTERIAL FLOW VOIDS: Preserved major arterial flow voids indicating gross patency. MRI/Brain W/WO Contrast IMPRESSION: 1. No evidence of intracranial metastasis. 2. Chronic microvascular ischemia and involutional changes. Reading Location: [facility]
== END | disposition home or self-care (01) ==
LOC: MRI 15:32
PROVIDERS: PCP Student in an Organized Health Care Education/Training Program; Referring Provider Internal Medicine Hematology & Oncology; Visit Provider Internal Medicine Hematology & Oncology
DX: C43.9 Malignant melanoma of skin, unspecified (principal); C78.01 Secondary malignant neoplasm of right lung; C78.02 Secondary malignant neoplasm of left lung; C78.7 Secondary malignant neoplasm of liver and intrahepatic bile duct
CPT/HCPCS: 70553; A9575